=== PATIENT | female | born 1965 | race Caucasian/White ===

== ENCOUNTER 2016-04-08 20:58 | Emergency (ER) | payer BC ==
[2016-04-08 21:06] VITALS: BP 145/74
== END 2016-04-08 22:51 | disposition left against medical advice (07) ==
LOC: ER 20:58
DX: Z53.21 Procedure and treatment not carried out due to patient leaving prior to being seen by health care provider (principal)

== ENCOUNTER 2016-06-11 06:54 | Day surgery (SDC) | payer BC ==
[~2016-06-11 06:54] MED LIST: RINGERS SOLUTION,LACTATED 1,000 ML IV PRN
--- OUTSIDE RECORDS SUMMARY | 2016-06-11 06:59 | XMS REPORT | Continuity of Care Document ---
:1965 Author Organization [facility] [place] [address] Care Team Providers Name Role Phone Unavailable Primary Care Provider Unavailable Source Comments This disclosure is being made pursuant to the [employer] program and maynot contain all information available regarding this patient.[facility] Active Allergies and Adverse Reactions Not on File Current Medications Be aware that medications may not be up to date as of this document. Alwaysverify current medications with the patient. Not on file Active Problems Not on file Social History Tobacco Use Types Packs/Day Years Used Date Former Smoker Last Filed Vital Signs Vital Sign Reading Time Taken Blood Pressure 101/76 06/15/2013 10:11 AM CDT Pulse 71 06/15/2013 10:11 AM CDT Temperature 36.8 C (98.2 F) 06/15/2013 10:11 AM CDT Respiratory Rate 16 06/15/2013 10:11 AM CDT Height 1.702 m (5' 7") 06/15/2013 10:11 AM CDT Weight 89.81 kg (197 lb 15.9 oz) 06/15/2013 10:11 AM CDT Body Mass Index 31 06/15/2013 10:11 AM CDT Oxygen Saturation - - Plan of Care Health Maintenance Due Date Last Done Comments Retired-Pertussis Vaccine Adult 05/18/1982 Retired-Tetanus Vaccine Adult 05/18/1982 Pap Smear 05/18/1984 Mammogram 2003 Colonoscopy 05/18/2013 Well Adult Visit 05/18/2013 Retired-INFLUENZA VACCINE 11/07/2014 Results from Last 3 Months Not on file
--- OUTSIDE RECORDS SUMMARY | 2016-06-11 06:59 | XMS REPORT | Continuity of Care Document ---
:1965 Author Organization [facility] ([facility]) Address [address] [place] [address] Phone [phone] Care Team Providers Name Role Phone Kylie Ahmadi Primary Care Provider [phone] Source Comments This disclosure is being made pursuant to the Care Everywhere program, applicable federal and state laws, and may not contain all informaitonavailable regarding this patient.[facility] ([facility]) Active Allergies and Adverse Reactions Allergen Noted Date Severity Reactions Comments Sulfa (Sulfonamide Antibiotics) 04/07/2011 OTHER Joints hurt Current Medications Prescription Sig. Disp. Refills Start Date End Date Status buPROPion (WELLBUTRIN XL) Take 150 mg by Active 150 mg extended release mouth 2 times tablet daily. multivitamin (MULTIPLE Take 1 Tab by mouth Active VITAMIN) tablet daily. Garland-3 Fatty Take 1 Cap by mouth Active Acids-Vitamin E (FISH daily. OIL) 1,000 mg Cap zolpiDEM (AMBIEN) 10 mg Take 10 mg by mouth Active tablet at bedtime as needed. Active Problems Not on file Social History Tobacco Use Types Packs/Day Years Used Date Former Smoker Cigarettes 25 Quit: 01/05/2011 Smokeless Tobacco: Never Used Alcohol Use Drinks/Week oz/Week Comments No Last Filed Vital Signs Vital Sign Reading Time Taken Blood Pressure 123/71 06/17/2011 2:45 PM CDT Pulse 63 06/17/2011 12:18 PM CDT Temperature 36.4 C (97.5 F) 06/17/2011 2:22 PM CDT Respiratory Rate 16 06/17/2011 2:45 PM CDT Height 1.73 m (5' 8.11") 05/14/2011 11:40 AM [employer] Weight 83.4 kg (183 lb 13.8 oz) 06/17/2011 12:18 PM CDT Body Mass Index 27.87 06/17/2011 12:18 PM CDT Oxygen Saturation 99% 06/17/2011 2:45 PM CDT Plan of Care Health Maintenance Due Date Last Done Comments HCV Screening 1965 Hepatitis B Vaccine (1 of 3 - Primary Series) 1965 Tdap Vaccine 05/18/1974 Lipid Disorder Screening 05/18/1981 MMR Vaccine 05/18/1981 Td Vaccine 05/18/1981 Cervical Cancer Screening 05/18/1993 Mammogram 2003 Colonoscopy 05/18/2013 Influenza Vaccine: Seasonal (#1) 10/08/2015 Results from Last 3 Months Not on file
[2016-06-11] MEDS ORDERED: BUPIVACAINE HCL/EPINEPHRINE 50 ML VIAL IJ ONE ×2 (07:55)
[2016-06-11] MEDS ORDERED: ceFAZolin SODIUM 1 GM VIAL IV ONE (08:30)
[2016-06-11] MEDS ORDERED: RINGERS SOLUTION,LACTATED 1,000 ML IV ONE (08:55)
[2016-06-11] MEDS ORDERED: RINGERS SOLUTION,LACTATED 1,000 ML IV PRN (09:47)
[2016-06-11] MEDS ORDERED: oxyCODONE HCL/ACETAMINOPHEN 1 TAB TABLET PO ONE (09:47)
[2016-06-11 11:26] VITALS: BP 117/81
--- NOTE | 2016-06-11 12:07 | OR ---
Operative Report - Dictated Report Narrative: OPERATIVE REPORT DATE OF OPERATION: 06/11/2016 PREOPERATIVE DIAGNOSIS: Lipoma right shoulder. No recent dedicated colon studies POSTOPERATIVE DIAGNOSIS: Lipoma right shoulder (pathology pending). Diverticulosis. Two 3-4 mm polyps at 20 cm (pathology pending) OPERATION: Excision lipoma (3 x 5 cm) right shoulder. Colonoscopy with hot biopsy forceps polypectomy 2 SURGEON: Joshua Curry MD ANESTHESIA: MAC/local Jah Negron CRNA INDICATIONS FOR PROCEDURE: The patient is a 50-year-old female referred by Torri COCHRAN. The patient has an enlarging and increasingly symptomatic mass on the right posterior shoulder. Her last colonoscopy was over 10 years ago. There is no family history of colon cancer. The patient is currently asymptomatic FINDINGS: 3 x 5 cm lipoma right shoulder (pathology pending). Diverticulosis with two 3-4mm polyps at 20 cm (pathology pending) NARRATIVE OF PROCEDURE: The patient was identified in the holding area, the surgical site was marked, and prior to the administration of anesthetic, a multidisciplinary timeout was observed. The patient received 1 g of intravenous Ancef. SCDs were applied. EXCISION LIPOMA RIGHT SHOULDER: With the patient in the left lateral position and after the administration of intravenous sedation, the right shoulder was prepped with Betadine solution and isolated with 4 sterile towels. The remainder the patient was covered with a sterile disposable drape. A 3.5 cm incision was outlined with a marking pen. The incision was made sharply and dissection carried through subcutaneous tissue until a self-contained lipomatous mass was encountered. This was gradually dissected free from the surrounding subcutaneous tissue and fascia with electrocautery, removed, and submitted to pathology. The wound appeared hemostatic. After receiving a correct sponge needle and instrument count attention was turned to closing the wound. Subcutaneous tissue was approximated with interrupted sutures of 0 Vicryl. The skin was approximated with a running subcuticular suture of 4-0 Vicryl. 0.5% Marcaine with epinephrine was used for local anesthetic infiltration. The operative site was washed and dried. A dressing of Dermabond was applied. There was no measurable blood loss. The lipoma was submitted to pathology. COLONOSCOPY: The perineum was inspected. There was no evidence of pilonidal disease or skin breakdown. The external appearance of the anus was normal. Sphincter tone was good. The flexible fiberoptic colonoscope was inserted into the rectum which was insufflated with air. The rectal mucosa and submucosal vascular pattern appeared normal, the prep was seen to be complete. The scope was advanced to 20 cm where 2 hyperplastic appearing polyps were encountered. These were biopsied and then thoroughly destroyed with electrocautery. The biopsy sites were seen to be complete and hemostatic. The scope was advanced through the sigmoid colon, which contained several not impacted noninflamed diverticular openings. At 40 cm there was sharp angulation of the colon which required withdrawal and re-advancement and patient repositioning to negotiate. The scope was then advanced up the descending colon, and around the splenic flexure where the triangular haustral architecture of the transverse colon was seen. The scope was advanced across the transverse colon, around the hepatic flexure to the cecum, where the confluence of tenia and the ileocecal valve were identified. The mucosa at this level appeared normal. The scope was then slowly withdrawn in a circular fashion so that all aspects of colonic mucosa were inspected. The proximal colon was capacious in character. The haustral architecture appeared well preserved throughout with no evidence of external compression. The mucosa and submucosal vascular pattern appeared normal, specifically there was no gross evidence to suggest colitis or inflammatory bowel disease and no AV malformations were seen. The diverticulosis was mild in degree and confined primarily to the sigmoid colon. No polyps approximately 20 cm were encountered. The scope was gradually withdrawn to the level of the rectum. As much insufflated air as possible was removed. The scope was withdrawn from the patient and the procedure terminated. The patient tolerated the anesthetic and procedure well without complication and was transferred back to the ambulatory surgery area awake and in stable condition. The patient remained stable throughout a period of postoperative observation. She denied abdominal or incisional discomfort, was able to tolerate by mouth intake, and was up without assistance. I shared the operative findings with the patient and she was given copies of the photographs which appear in the medical record. She was discharged home with instructions not to engage in hazardous activity today, but may resume normal activity tomorrow, and advance diet as tolerated. She is to keep her shoulder incision as dry as possible for 48 hours. She was given a prescription for Percocet 5/325 mg #10 1-2 po Q4-6hrs prn pain. She is to continue those other medications as listed in the history and physical exam. A return office appointment was made for 1 week. Reviewed and electronically signed
== END 2016-06-11 06:55 | disposition home or self-care (01) ==
LOC: AMB 06:54
PROVIDERS: ATTEND Surgery
PROC: 0XB20ZX Excision of Right Shoulder Region, Open Approach, Diagnostic (ICD-10-PCS; 2016-06-11)
PROC: 0DBE8ZX Excision of Large Intestine, Via Natural or Artificial Opening Endoscopic, Diagnostic (ICD-10-PCS; principal; 2016-06-11 08:00)
PROC: 0JQD0ZZ Repair Right Upper Arm Subcutaneous Tissue and Fascia, Open Approach (ICD-10-PCS; 2016-06-11 08:00)
DX: Z12.11 Encounter for screening for malignant neoplasm of colon (principal); K63.5 Polyp of colon; K57.30 Diverticulosis of large intestine without perforation or abscess without bleeding; D17.21 Benign lipomatous neoplasm of skin and subcutaneous tissue of right arm; Z87.891 Personal history of nicotine dependence; Z68.29 Body mass index [BMI] 29.0-29.9, adult